=== PATIENT | male | born 1945 | race African-American/Black ===

== ENCOUNTER 2021-02-07 11:48 | Emergency (ER) | payer MEDICARE ==
[~2021-02-07] VITALS: Ht 170.2 cm; Wt 86.4 kg
[~2021-02-07 11:48] MED LIST: HYDR12.575 PO
[2021-02-07] MEDS ORDERED: IBUP-1007 PO (12:18)
--- NOTE | 2021-02-07 12:19 | PHYS DOC ---
Past Medical History Past Medical History: No Pertinent History Past Surgical History: No Surgical History Smoking Status: Current Every Day Smoker Alcohol Use: None Drug Use: None General Adult EDM: Chief Complaint: CONSTIPATION HPI: HPI: Patient is a 75-year-old male who presents to the emergency department for constipation problems that this past Tuesday. Patient reports he has off-and-on problems with constipation but has never gone 5 days without having a bowel movement. Patient reports he had abdominal discomfort, with straining at home and could not get any bowel movement results. Patient reports when he came to the emergency department he had a large bowel movement during his triage process with the ED nurse, patient reports he feels much better now and has no abdominal pains or discomfort, did not see blood in his stool, denies nausea or vomiting. Denies chest pains or recent fever or chills. Patient reports he takes over- the-counter allergy medications and nasal spray for seasonal allergies otherwise is not prescribed any other medications by his primary care physician Dr. Delgado. Patient denies other physical complaints or physical concerns. Review of Systems: Review of Systems: 14 body systems of review of systems have been reviewed. See HPI for pertinent positives and negative responses, otherwise all other systems are negative, nonpertinent or noncontributory. Constitutional: Negative except as outlined in HPI above. Skin: Negative except as outlined in HPI above. Eyes: Negative except as outlined in HPI above. HENT: Negative except as outlined in HPI above. Respiratory: Negative except as outlined in HPI above. Cardiovascular: Negative except as outlined in HPI above. GI: Negative except as outlined in HPI above. : Negative except as outlined in HPI above. Musculoskeletal: Negative except as outlined in HPI above. Integument: Negative except as outlined in HPI above. Neurologic: Negative except as outlined in HPI above. Endocrine: Negative except as outlined in HPI above. Lymphatic: Negative except as outlined in HPI above. Psychiatric: Negative except as outlined in HPI above. Heart Score: C/O Chest Pain: No Risk Factors: Risk Factors: DM, Current or recent (<one month) smoker, HTN, HLP, family history of CAD, obesity. Risk Scores: Score 0 - 3: 2.5% MACE over next 6 weeks - Discharge Home Score 4 - 6: 20.3% MACE over next 6 weeks - Admit for Clinical Observation Score 7 - 10: 72.7% MACE over next 6 weeks - Early Invasive Strategies Allergies: Allergies: Allergies Coded Allergies Type Severity Reaction Last Updated Verified No Known Drug Allergies 01/10/16 No Physical Exam: PE: Constitutional: Well developed, well nourished, no acute distress, non-toxic appearance. 75-year-old male in no apparent distress. HENT: Normocephalic, atraumatic. Eyes: Conjunctiva normal, no discharge. Neck: Normal range of motion, no stridor. Cardiovascular: No cyanosis appreciated, distal cap refill less than 2 seconds. Lungs & Thorax: Patient is in no respiratory distress, no audible adventitious lung sounds appreciated. Abdomen: Nontender, no abnormalities noted. Normal bowel sounds all 4 quadrants, no skin discoloration of the abdomen appreciated. Skin: Warm, dry, no erythema, no rash. Back: No tenderness, no deformities. Extremities: No tenderness, no cyanosis, no clubbing, ROM intact, no edema. Neurologic: Alert and oriented X 3, normal motor function, normal sensory function, no focal deficits noted. Psychologic: Affect normal, judgement normal, mood normal. Current Patient Data: Vital Signs: Vital Signs Date Time Temp Pulse Resp B/P (MAP) Pulse Ox O2 Delivery O2 Flow Rate FiO2 02/07/21 11:48 97.3 61 18 197/80 (119) 99 Room Air 97.3 EKG: EKG: [] Radiology/Procedures: Radiology/Procedures: [] Course & Med Decision Making: Course & Med Decision Making Pertinent Labs and Imaging studies reviewed. (See chart for details) 75-year-old male, vital signs reviewed, presents to the emergency department concerning constipation at home. Patient's physical examination unremarkable, during nursing triage process, patient used bathroom and reported a large bowel movement, reports all his symptoms were resolved. It was noted patient had blood pressure of 197/80, patient reports he has a history of hypertensive episodes when at physician's office however he does not have hypertension and is not treated. A bedside noninvasive blood pressure performed by myself was reduced to 179/79. Discussed with patient to let Dr. Delgado know of his hy pertension at the emergency department, however we discussed blood pressure may have been elevated because of recent abdominal discomfort or there may be a white coat syndrome component. Discussed with patient using [id number] MiraLAX to keep stools soft, patient reports he has used this in the past and has some at home. Discussed return ER precautions or concerns. Patient has asked for a prescription of ibuprofen for any returning discomfort. Patient is currently in no apparent distress, nontoxic in appearance, will discharge to home with diagnosis of constipation. Patient gave verbal understanding of and is amenable to ED discharge planning. Discussed with the patient all findings and diagnostic testing as well as the need to follow-up with their primary care provider for further evaluation and treatment or return to the ED if any new or worsening symptoms. Strict return precautions were also discussed at length, the patient voiced understanding and agreement with the discharge planning. The patient was nontoxic in appearance, in no apparent distress, and hemodynamically stable at the time of disposition. Dragon Disclaimer: Dragon Disclaimer: This electronic medical record was generated, in whole or in part, using a voice recognition dictation system. Departure Departure Impression: Primary Impression: Constipation Qualified Codes: K59.00 - Constipation, unspecified Disposition: HOME / SELF CARE / HOMELESS Condition: GOOD Referrals: CHIP DELGADO MD (PCP) Patient Instructions: Constipation, Adult Additional Instructions: You were seen today in the emergency department for constipation problems. You had a large bowel movement while in the ED today which resolved your symptoms. As we discussed please try taking [id number] MiraLAX as directed to help keep stools soft, as we discussed your blood pressure was elevated today, it was 179/79, you had reported hypotensive episodes in the past however have not been started on any blood pressure medications, please follow-up with Dr. Delgado this week to discuss constipation problems and elevated blood pressure episodes. Please return to the emergency department for any returning severe abdominal pains, syncopal episodes, chest pains, or other concerns. You could ask for a prescription of ibuprofen for any returning discomfort, I am prescribing you a short regimen of 600 mg ibuprofen to take as needed for discomfort. Thank you for visiting our Emergency Department. It was a pleasure taking care of you today in the emergency department and we appreciate you trusting us with your care. If any additional problems come up don't hesitate to return to visit us. Please follow up with your primary care provider so they can plan additional care if needed and know about the problem that you had. If symptoms worsen come back to the Emergency Department. Any concerning symptoms that start such as chest pain, shortness of air, weakness or numbness on one side of the body, running high fevers or any other concerning symptoms return to the ER. Scripts Ibuprofen (IBUPROFEN) 600 Mg Tablet 600 MG PO PRN Q6HRS PRN for INFLAMMATION, #30 TAB 0 Refills Prov: MARYELLEN AVILA APRN 02/07/21 MARYELLEN AVILA APRN Feb 07, 2021 12:19
[2021-02-07 13:20] VITALS: BP 174/70
== END 2021-02-07 13:20 | disposition home or self-care (01) ==
LOC: ER 11:48
DX: K59.00 Constipation, unspecified (principal); F17.200 Nicotine dependence, unspecified, uncomplicated
CPT/HCPCS: 99283